=== PATIENT | female | born 1985 | race Caucasian/White ===

== ENCOUNTER 2017-02-16 09:13 | Emergency (ER) | payer OTHER ==
[~2017-02-16] VITALS: Ht 172.7 cm; Wt 74.5 kg
[~2017-02-16 09:13] MED LIST: AUGMENTIN 875-1 EACH PO; FERROUS SULFAT325 M1 PO; MOTRIN400 MG PO; PERCOCET 5/3251 EACH PO; PRENATAL VITAMI1 TA3 PO; VIGAMOX 3 ML3 ML OP
[2017-02-16] MEDS ORDERED: BROMFED DM COU118 ML PO (09:56)
[2017-02-16] MEDS ORDERED: FLONASE 50 MCG16 GM (09:56)
[2017-02-16] MEDS ORDERED: AUGMENTIN 875-1 EACH PO (09:56)
--- NOTE | 2017-02-16 09:57 | [facility] Report ---
History of Present Issue Date/Time Seen by Provider 02/16/17 0946 Visit Reason Pt arrived:Walked Presenting Problem:SINUS PRESSURE AND CONGESTION X 4 DAYS. DARK GREEN MUCUS WITH COUGH Location if Accident: Onset of symptoms date/time:/ or onset unknown for:MEDICAL HX UNKNOWN Have you (or family members/close friends) recently traveled outside the [place]? N If Yes, where/when: Have you had exposure to infectious disease within the past month? TB? Other? Specify: c/o "I have a sinus infection". mild allergy symptoms that has resulted in sinus pressure, thick green nasal drainage, PND, nasal congestion worsening each day since Sunday, 4 days ago. Sudafed not helping. Hasn't taken or tried anything else on her own. Uterine ablation Sunday and knows she was given unknown antibiotic during procedure. contributes sore throat to procedural intubation. No known sick contacts. Source patient Exam Limitations no limitations ALLERGIES Coded Allergies: No Known Allergies (02/14/17) History Medical History General CAD? No Angina: No MO: No Hypertension? No Hyperlipidemia? No CHF? No DVT? No PE? No COPD? No Asthma? No Anemia? No GERD? No Gastric ulcers? No GI Bleed? No Hernia? No Thyroid Problems? No Hypothyroidism? No CVA? No Seizures? No Diabetes? No Renal Insuffiency? No UTI? No Stones? No GB Disease: No Nephritic Syndrome? No Asplenia? No Hepatitis? No Sickle Cell Disease? No Arthritis? No Migraines? No Cataracts? No Glaucoma? No MRSA? No HIV? No TB? No Anxiety? No Depression? No Cancer? No Immunization HX DT/Tetanus 5-10 YRS Flu 2011-FSN Pneumonia REFUSES Surgical Hx Previous Surgery?Y X 3 BREAST BIOPSY L & R TUBAL Family History Family HX Diabetes Yes CAD No Hypertension Yes Hyperlipidemia Yes Cancer Yes TB No Social History Smoking Hx Smoker: Current Every Day Smoker Tobacco: Yes Type Cigarettes Packs/day < 1 Pack Alcohol Alcohol: No Review of Systems All Other Systems Reviewed and Negative Constitutional see HPI, denies fever, denies malaise Eyes denies drainage ENT see HPI, ear pain ("fullness"). denies: ear discharge, throat swelling. Respiratory cough (nonprod), denies shortness of breath, denies wheezing Cardiovascular denies chest pain Gastrointestinal denies no symptoms reported Skin denies rash Psychiatric/Neurological headache ("sinus type in front") Physical Exam Vital Signs Vital Signs Date Time Temp Pulse Resp B/P Pulse O2 O2 Flow FiO2 Ox Delivery Rate 02/16 09 97.9 95 18 118/78 98 General Appearance normal appearance, no apparent distress Eye Exam - bilateral eye normal exam Ear, Nose, Throat normal EACs and TMs bilaterally, thick green nasal drainage, PND & cobblestoning, moderate frontal sinus tenderness bilaterally Neck non-tender, supple Respiratory Status No: respiratory distress. Lung Sounds anterior: lungs clear. posterior: lungs clear. bilateral: lungs clear. Cardiovascular regular rate/rhythm, no peripheral edema, no murmur Neurologic alert, oriented x 3 Mental status normal mood/affect Skin normal color, warm/dry Lymphatic no adenopathy Medical Decision Making LABS/Meds/Orders Pt receiving controlled substance in ED? No Departure Departure Time of Disposition 951 Disposition DC Home or Self Care(routine) Clinical Impression Primary Impression: Sinusitis, acute frontal Qualifiers: Recurrence: non-recurrent Qualified Code: J01.10 - Acute frontal sinusitis, unspecified Condition STABLE Referrals NO REFERRAL See primary care IMMEDIATELY for new or worsening symptoms OR no noticeable improvement over the next 72 hours. 911 for difficulty breathing or swallowing.* Patient Instructions DI for Sinusitis Additional Instructions * augmentin can cause GI side effects. Probiotics help prevent these symptoms. * Start antibiotic and be sure to take as ordered for the FULL length of time even if you feel better. Sinus infections do not get better overnight. It may take 2-3 days to notice much improvement so be sure to use conservative measures as discussed for symptoms. * Lots of fluids * Sleep elevated * Humidifier/vaporizer * warm salt water gargles * warm fluids * sore throat lozenges * flonase 2 sprays each nostril daily but may take 2-3 days to notice improvement with it. * Bromfed may cause drowsiness. Know how it effects you (or your child) before driving, caring for small children, or sending your child to school. No other antihistamines/allergy medications while taking bromfed. Discharge Counseling Counseled pt/family regarding diagnosis, medications/RX, home care, follow up needs Prescriptions Current Visit Scripts Amoxicillin/Potassium Clav (Augmentin 875-125 Tablet) 1 EACH PO BID #20 TAB Fluticasone Propionate (Flonase 50 Mcg Nasal [place]) 2 SPRAY NA DAILY #1 BOT D-METHORPHAN HB/P-EPD HCL/BPM (Bromfed Dm Cough Syrup) 10 ML PO QIDP PRN cough #240 ML at 1002
[2017-02-16 10:00] VITALS: BP 118/78
== END 2017-02-16 10:01 | disposition home or self-care (01) ==
LOC: UTC 09:13
DX: J01.10 Acute frontal sinusitis, unspecified (principal); Z72.0 Tobacco use